=== PATIENT | male | born 1955 | race Caucasian/White ===

== ENCOUNTER 2019-01-24 16:38 | Inpatient (IN) | payer MEDICARE, MEDICAID ==
[~2019-01-24] VITALS: Ht 177.8 cm; Wt 71.9 kg
[2019-01-24 16:43] VITALS: Ht 177.8 cm; Wt 71.9 kg
--- NOTE | 2019-01-24 16:43 | NUR ---
PT BIBA FOR "POSSIBLE SYNCOPAL EPISODE", PER MEDICS PT WAS "FOUND BY THE [employer] STAFF PICKING HIMSELF OFF THE FLOOR. PER THE PT, THE LAST THING HE SAID HE REMEMBERED WAS STANDING UP TO PEE IN THE URINAL OF THE RESTROOM". PT DENIES ANY HEAD/NECK/EXTREMITY/HIP PAIN, DENIES BEING ON ANY BLOOD THINNERS, PT NOTED TO BE POOR HISTORIAN IN REGARDS TO MEDICAL HX AND MEDICATIONS. STRONG AND EQUAL HEAD WELL PULLER AND PUSHES TO MARIA ISABEL UPPER AND LOWER EXTREMITIES, NEURO INTACT, SPEECH IS CLEAR, ANSWERS QUESTIONS APPROPRIATELY, NAD NOTED, FOLLOWS COMMANDS, SPEAKS IN FULL SENTENCES, RESPS E/U, DENIES CP AND SOB. UPON PT TRANSFERRING SELF WITH STEADY GAIT TO [facility], PT REPORTS FEELING "LIGHTHEADED". PT PLACED ON FULL CM.
--- NOTE | 2019-01-24 16:50 | NUR ---
EKG DONE AT BEDSIDE.
--- NOTE | 2019-01-24 17:22 | NUR ---
DR. HERRERA AT [facility] FOR MSE.
--- NOTE | 2019-01-24 17:23 | NUR ---
LAB AT BEDSIDE.
--- NOTE | 2019-01-24 17:24 | NUR ---
SONS AND AT BEDSIDE WITH PT.
--- NOTE | 2019-01-24 17:39 | NUR ---
PER DR HERRERA, "BOLUS 500CC OF NS THEN DECREASE TO 250ML/HR". PT MEDICATED PER VERBAL OREDERS OF DR HERRERA.
--- NOTE | 2019-01-24 17:43 | NUR ---
XRAY AT BEDSIDE.
[2019-01-24 17:49] LABS: UA SPECIFIC GRAVITY 1.015 (1.005-1.035); microscopic required? YES; urine erythrocyte 1+ (NEGATIVE)
[2019-01-24 17:55] LABS: BASOPHIL % 0.3 % (0-2); PLATELET COUNT 211 x10^3mcL (130-400); RED CELL DISTRIBUTION WIDTH 13.4 % (11.5-14.5)
--- NOTE | 2019-01-24 17:56 | NUR ---
PT TAKEN FOR CT.
[2019-01-24 18:19] LABS: T3 TOTAL 0.97 ng/mL
[2019-01-24 18:21] LABS: FREE T4 0.84 ng/dL (0.76-1.46); FREE THYROXINE INDEX 2.1 ug/dL (1.4-4.5); T4(THYROXINE) 6.2 ug/dL (4.7-13.3)
[2019-01-24 18:23] LABS: CALCIUM 8.5 mg/dL (8.5-10.1); CARBON DIOXIDE 27.1 mmol/L (21-32); CHLORIDE SERUM 104 mmol/L (98-107); CREATININE SERUM 1.2 mg/dL (0.7-1.3); GFR1 > 60 mL/min; GLUCOSE SERUM 122 mg/dL (74-106); POTASSIUM SERUM 4.2 mmol/L (3.5-5.1); SODIUM SERUM 141 mmol/L (136-145)
[2019-01-24 18:26] LABS: ALBUMIN 3.7 g/dL (3.4-5.0); ALKALINE PHOSPHATASE 47 U/L (46-116); ALT/SGPT 47 U/L (16-63); AST/SGOT 36 U/L (15-37); BILIRUBIN TOTAL 0.5 mg/dL (0.20-1.00); HDL CHOLESTEROL 51 mg/dL (40-60); LIPASE 154 IU/L (73-393); TOTAL PROTEIN, SERUM 7.4 g/dL (6.4-8.2); TRIGLYCERIDES 36 mg/dL (<150)
[2019-01-24 18:30] LABS: CHOLESTEROL 107 mg/dL (<200); CHOLESTEROL/HDL RATIO 2.1
--- NOTE | 2019-01-24 19:16 | NUR ---
PT'S ON PHONE CALL WITH SON, STS HE ROLAND RETURN TO ED WITH PT'S MEDICATION LIST.
--- NOTE | 2019-01-24 19:32 | NUR ---
REPORT GIVEN TO ALISA SHANE TO ASSUME CARE OF PT.
--- NOTE | 2019-01-24 20:03 | NUR ---
PT REPORT CALLED TO POORNIMA CUELLAR TO ASSUME PT CARE.
--- NOTE | 2019-01-24 20:10 | NUR ---
PT TRANSFERRED TO [address] [facility] BY MAKENNA ALFRED AND RAMYA RN. PT ON FULL CM FOR TRANSPORT, PT AOX4, RESP EVEN AND UNLABORED, NO ACUTE DISTRESS NOTED. PT ACCEPTED BY POORNIMA CUELLAR TO ASSUME PT CARE, PT AMBULATED FROM [facility] TO BED WITH OUT INCIDENT.
--- NOTE | 2019-01-24 20:45 | NUR ---
ENDORSED TO NURSE NOGUERA
[2019-01-24 20:55] VITALS: BP 123/64
--- NOTE | 2019-01-24 21:05 | NUR ---
RECEIVED FROM ER, TRANSPORTED VIA [facility]. AWAKE AND ALERT, ABLE TO STATE NAME, , WHERE HE IS, PRESENT MONTH AND YEAR, AND WHY HE IS HERE. ABLE TO MAKE NEEDS KNOWN. NO FACIAL DROOP OR SLURRING OF SPEECH. ABLE TO KEEP BOTH ARMS ELEVATED X 10 SECS. ABLE TO KEEP EACH LEG ELEVATED X 5 SECS. DENIES HAVING PAIN, DIZZINESS, OR NAUSEA. SALINE LOCK TO LEFT AC. BREATHING EVEN AND UNLABORED ON ROOM AIR. LUNG SOUNDS CLEAR. ORIENTED TO ROOM ENVIRONMENT, INSTRUCTED ON USE OF CALL LIGHT TO CALL FOR ASSISTANCE, PLACED WITHIN EASY REACH. HOB ELEVATED 30 DEG.
--- NOTE | 2019-01-24 23:28 | NUR ---
NEW ADM. RESTING QUIETLY IN BED. ALERT AND ORIENTED. DENIES HEADACHE/DIZZINESS. AFEBRILE AND VITAL SIGNS STABLE. SR ON THE MONITOR, DENIES CHEST PAIN OR ANY DISCOMFORT AT THIS TIME. DUE MEDS GIVEN ORDERED, ROQUE. WELL. STARTED ON IVF, NS AT 75ML/HR, INTACT AND INFUSING VIA LAC. NO COMPLAINTS NOTED AT THIS TIME. ABLE TO MOVE ALL EXTS. CALL LIGHT WITHIN REACH. WILL CONTINUE TO MONITOR.
--- NOTE | 2019-01-25 01:54 | NUR ---
ASLEEP, EASILY AROUSABLE. RESP. EVEN AND UNLABORED. NO ACUTE DISTRESS NOTED.CALL LIGHT WITHIN REACH. WILL CONTINUE TO MONITOR.
[2019-01-25 05:27] VITALS: BP 94/49
--- NOTE | 2019-01-25 06:35 | NUR ---
SLEPT WELL. NO COMPLAINTS NOTED AT THIS TIME. AFEBRILE AND VITAL SIGN STABLE. RESP. EVEN AND UNLABORED, ON ROOM AIR, NO ACUTE DISTRESS NOTED. KEPT COMFORTABLE. IVF INTACT AND INFUSING WELL, SITE CLEAR. VOIDING FREELY. DENIES PAIN OR ANY DISCOMFORT. CALL LIGHT WITHIN REACH. WILL ENDORSE TO INCOMING TO NURSE.
--- NOTE | 2019-01-25 07:00 | NUR ---
AAO TIMES 4. TELE # 26 SR. DENIES DIZZINESS OR SYNCOPE. LUNGS CTA. NO SOB. O2 SAT ON RA 99%. BS'S ACTIVE TIMES 4. KATHERYN STRONG. IV SITE CDI. COOPERATIVE. NO C/O PAIN. PRESENT, SUPPORTIVE. FALL PRECAUTIONS. IV NS INFUSING AT 75ML PER HOUR.
[2019-01-25 07:24] LABS: CALCIUM 8.5 mg/dL (8.5-10.1); CARBON DIOXIDE 26.8 mmol/L (21-32); CHLORIDE SERUM 107 mmol/L (98-107); GFR1 > 60 mL/min; GLUCOSE SERUM 110 mg/dL (74-106); MAGNESIUM 2.2 mg/dL (1.8-2.4); PHOSPHOROUS 3.4 mg/dL (2.5-4.9); POTASSIUM SERUM 4.2 mmol/L (3.5-5.1); SODIUM SERUM 140 mmol/L (136-145)
[2019-01-25 07:47] LABS: BASOPHIL % 0.3 % (0-2); PLATELET COUNT 186 x10^3mcL (130-400); RED CELL DISTRIBUTION WIDTH 13.4 % (11.5-14.5)
[2019-01-25 09:10] VITALS: BP 113/62
[2019-01-25 14:10] VITALS: BP 100/57
--- NOTE | 2019-01-25 17:58 | NUR ---
AAO TIMES 4. FAMILY PRESENT, SUPPORTIVE. TELE # 26 SR. NO C/O PAIN. NO SOB. COOPERATIVE. NO C/O PAIN. NO C/O SYNCOPE OR DIZZINESS. IV SITE CDI.
[2019-01-25 18:08] VITALS: BP 112/67
--- NOTE | 2019-01-25 19:46 | NUR ---
PT CURRENTLY RESTING IN BED, NO ACUTE DISTRESS. A/O X4. TELE #26 SHOWING SINUS RHYTHM, DENIES CHEST PAIN. PULSES PALPABLE IN ALL EXTREMITIES, NO EDEMA NOTED. LUNG SOUNDS CTA BILATERALLY, DENIES SOB. BOWEL SOUNDS ACTIVE, LAST BM 01/24/19. VOIDING WELL. MILD GENERALIZED WEAKNESS, AMBULATORY. SKIN INTACT. IV PATENT AND INTACT. BED IN LOWEST POSITION, SIDE RAILS UP X2, CALL LIGHT WITHIN REACH. WILL CONTINUE TO MONITOR.
[2019-01-25 20:49] VITALS: BP 105/56
--- NOTE | 2019-01-25 23:42 | NUR ---
PT CURRENTLY RESTING IN BED, NO ACUTE DISTRESS. WILL CONTINUE TO MONITOR.
[2019-01-26 05:14] VITALS: BP 121/63
--- NOTE | 2019-01-26 06:04 | NUR ---
PT SLEPT PERIODICALLY THROUGHOUT NIGHT, NO ACUTE DISTRESS. ALL NEEDS MET AND ATTENDED TO. NO SIGNIFICANT CHANGES. IV PATENT AND INTACT. BED IN LOWEST POSITION, SIDE RAILS UP X2, CALL LIGHT WITHIN REACH. WILL ENDORSE CARE TO ONCOMING NURSE.
[2019-01-26 06:38] LABS: BASOPHIL % 0.6 % (0-2); PLATELET COUNT 199 x10^3mcL (130-400); RED CELL DISTRIBUTION WIDTH 13.4 % (11.5-14.5)
[2019-01-26 07:07] LABS: CALCIUM 8.6 mg/dL (8.5-10.1); CARBON DIOXIDE 28.8 mmol/L (21-32); CHLORIDE SERUM 107 mmol/L (98-107); CREATININE SERUM 1.1 mg/dL (0.7-1.3); GFR1 > 60 mL/min; GLUCOSE SERUM 114 mg/dL (74-106); MAGNESIUM 2.2 mg/dL (1.8-2.4); PHOSPHOROUS 3.3 mg/dL (2.5-4.9); POTASSIUM SERUM 4.1 mmol/L (3.5-5.1); SODIUM SERUM 143 mmol/L (136-145)
[2019-01-26 08:14] VITALS: BP 139/80
--- NOTE | 2019-01-26 08:37 | NUR ---
AAO TIMES 4. TELE # 26 SR. LUNGS CTA. NO SOB. O2 SAT ON RA 97%. BS'S ACTIVE TIMES 4. CAMPA STRONG. IV SITE CDI. NO C/O PAIN. PERIPHERAL PULSES PALPABLE. NO EDEMA. COOPERATIVE.
[2019-01-26 11:37] VITALS: BP 108/59
[2019-01-26 15:20] VITALS: BP 107/56
--- NOTE | 2019-01-26 18:05 | NUR ---
AAO TIMES 4. TELE # 26 SR. IV SITE CDI. NO C/O PAIN. NO SOB. VS'S STABLE. COOPERATIVE. BRP SELF, NO DIFFICULTY. STILL WAITING FOR BED FROM HIGHER LEVEL OF CARE FOR HIM TO BE TRANFERRED TO.
--- NOTE | 2019-01-26 19:20 | NUR ---
REC'D PT FROM DAY NURSE. FAMILY AT BEDSIDE. PT RESTING IN BED. AAOX4, SPEECH CLEAR, FOLLOWS COMMANDS. TELE 26. DENIES CP, DIZZINESS, OR PALPITATIONS. DENIES RESP DISTRESS OR SOB. BREATHING EVEN/UNLABORED ON RA. ABD SOFT/FLAT. DENIES ABD PAIN, TENDERNESS, OR N/V. VOIDING FREELY. MILD GEN WEAKNESS. AMBULATORY. SKIN INTACT. IV TO LAC PATENT AND INFUSING, SITE WNL. CALL LIGHT WITHIN REACH, BED AT LOWEST POSITION. WILL CONTINUE TO MONITOR. PT AND FAMILY MADE AWARE OF PLAN TO TX TO [facility] TONIGHT. PENDING TRANSFER ORDERS AND CALL BACK FROM [facility] [place] FOR BED PLAC[place].
[2019-01-26 20:50] VITALS: BP 97/48
--- NOTE | 2019-01-26 21:42 | NUR ---
CALLED [facility] [phone] REGARDING TRANSFER UPDATE. STATED NO BEDS AVAILABLE AT THIS TIME. PT, , AND SON KAYY UPDATED.
--- NOTE | 2019-01-26 22:55 | NUR ---
REPORT GIVEN TO ADAM CUELLAR. PT RESTING IN BED. APPEARS TO BE SLEEPING. BREATHING EVEN/UNLABORED ON RA. CALL LIGHT WITHIN REACH, BED AT LOWEST POSITION.
[2019-01-27 00:34] VITALS: BP 124/67; BP 97/48
--- NOTE | 2019-01-27 00:34 | NUR ---
Call from [facility] transfer center was received at this time, bed is ready as per Nanci. Bed available at this time room 6635 - Bed 2. Charge Nurse, stephie Banks MD contact center director for d/c orders at this time. Transportation arranged for a filler picker in an hour, set for 0145 at this time. Receiving MD will be Dr. Andersen, as per Nanci. Will prepare pt. for d/c and continue to monitor at this time.
--- NOTE | 2019-01-27 01:10 | NUR ---
0056: I called to give report to receiving nurse. Receiving nurse will be Samantha, report given. 0105: Son's cellphone was called at [phone], but phone call went straight to voicemail at this time. Offered call back number for both [facility] [place] [facility] [place] had [place]. Will continue to monitor pt. at this time.
--- NOTE | 2019-01-27 02:30 | NUR ---
[facility] arrived at 0213 to transport [place] [facility] [place] Pt. stable at this time, and gave report to 2 [facility] transport at this time. Pt. left the floor at 0225 with [facility] transport. 228, Samantha CUELLAR at [facility] [place] inform her that pt. has left [place]. 233, Nanci from the [facility] [place] to inform her of update.
== END 2019-01-27 02:25 | disposition short-term general hospital (02) | DRG 307 ==
LOC: ED 16:38 → DU 19:36
PROVIDERS: Specialist; ADMIT Internal Medicine
DX: I35.0 Nonrheumatic aortic (valve) stenosis (principal); M62.82 Rhabdomyolysis; R55 Syncope and collapse; R06.00 Dyspnea, unspecified; I49.3 Ventricular premature depolarization; I10 Essential (primary) hypertension; E11.9 Type 2 diabetes mellitus without complications; E78.5 Hyperlipidemia, unspecified; Z79.84 Long term (current) use of oral hypoglycemic drugs; Z68.25 Body mass index [BMI] 25.0-25.9, adult; Z87.891 Personal history of nicotine dependence; Z86.73 Personal history of transient ischemic attack (TIA), and cerebral infarction without residual deficits
CPT/HCPCS: 82962; 83880; 84439; G0378; J7030; Q0092